=== PATIENT | female | born 1945 | race Caucasian/White ===

== ENCOUNTER 2023-04-15 11:00 | Outpatient (CLI) | payer MEDICARE | END 2023-04-15 11:01 | disposition home or self-care (01) | LOC: CSHRAD 11:00 | PROVIDERS: ATTEND Neurological Surgery | DX: Z01.818 Encounter for other preprocedural examination (principal); M54.16 Radiculopathy, lumbar region | CPT/HCPCS: 71046 ==

== ENCOUNTER 2023-04-17 08:59 | Outpatient (CLI) | payer MEDICARE | END 2023-04-17 09:00 | disposition home or self-care (01) | LOC: CSHSPEC 08:59 | PROVIDERS: ATTEND Neurological Surgery | DX: M47.26 Other spondylosis with radiculopathy, lumbar region (principal); I70.90 Unspecified atherosclerosis; M47.27 Other spondylosis with radiculopathy, lumbosacral region | CPT/HCPCS: 72110; 72148 ==